=== PATIENT | female | born 1975 | race American Indian/Alaskan Native ===

== ENCOUNTER 2020-12-28 07:30 | Inpatient (IN) | payer BC ==
--- NOTE | 2021-01-17 10:24 | Anesthesia Consultation ---
Anesthesia Consult and Med Hx Date of service: 01/18/21 - Airway Anesthetic Teeth Evaluation: Good ROM Head & Neck: Adequate Mental/Hyoid Distance: Adequate Mallampati Class: Class II Intubation Access Assessment: Good - Pre-Operative Health Status ASA Pre-Surgery Classification: ASA2 Proposed Anesthetic Plan: General - Pulmonary Hx Smoking: No Hx Asthma: Yes (Allergic; INHALER PRN) Hx Sleep Apnea: No (LUIS PRE SCREEN LOW RISK) - Cardiovascular System Hx Hypertension: No - Central Nervous System Hx Back Pain: Yes (CHRONIC BACK PAIN WITH LEFT LEG PAIN) Hx Psychiatric Problems: No - Hematic Hx Anemia: No - Other Systems Hx Cancer: No - Additional Comments Anesthesia Medical History Comments: 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
[2021-01-17 10:28] LABS: Hematocrit 37.3 % (30.3-42.9); Hemoglobin 12.4 gm/dl (10.1-14.3); Mean Corpuscular HGB Conc 33 % (30-34); Mean Corpuscular Volume 86 fl (79-97); Platelet Count 159 K/mm3 (140-440); Red Blood Count 4.32 M/mm3 (3.65-5.03); Red Cell Distribution Width 13.9 % (13.2-15.2)
[2021-01-17 10:42] LABS: Blood Urea Nitrogen 12 mg/dL (7-17); Calcium 8.6 mg/dL (8.4-10.2); Hemolysis Index 21
[2021-01-17 10:44] LABS: BUN/Creatinine Ratio 20
[2021-01-18] MEDS ORDERED: ceFAZolin/Water 2 GM/20 ML 2 GM/20 ML SYRINGE IV NR (00:01)
[2021-01-18] MEDS ORDERED: MAGNESIUM OXIDE 400 MG TAB PO SCH (06:00)
[2021-01-18] MEDS ORDERED: LACTATED RINGERS 1,000 ML IV SCH (06:00)
[2021-01-18] MEDS ORDERED: GABAPENTIN 300 MG CAP PO NR (06:00)
[2021-01-18] MEDS ORDERED: ACETAMINOPHEN 500 MG TAB PO ONE (06:00)
[2021-01-18] MEDS ORDERED: MIDAZOLAM 2 MG/2 ML INJ IV NR (06:00)
[2021-01-18] MEDS ORDERED: propofoL 200 MG/20 ML VIAL IV ONE (07:22)
[2021-01-18] MEDS ORDERED: fentaNYL 100 MCG/2 ML INJ ONE (07:22)
[2021-01-18] MEDS ORDERED: HYDROmorphone 1 MG/1 ML INJ IV PRN (07:30)
[2021-01-18] MEDS ORDERED: ONDANSETRON 4 MG/2 ML INJ IV PRN ×2 (07:30→20:07)
[2021-01-18] MEDS ORDERED: LIDOCAINE PF 100 MG/5 ML (CARDIAC SYRINGE) IV ONE (07:38)
[2021-01-18] MEDS ORDERED: ONDANSETRON 4 MG/2 ML INJ ONE (07:38)
[2021-01-18] MEDS ORDERED: BUPIVACAINE/PF (0.5%) 5 MG/1 ML 30 ML VIAL INFILTRATI ONE ×2 (07:53→12:06)
[2021-01-18] MEDS ORDERED: BACITRACIN ZINC OINT 28.4 GM TP ONE ×2 (07:53→12:50)
[2021-01-18] MEDS ORDERED: GELATIN SPONGE SIZE 100 TP ONE ×3 (07:54→12:10)
[2021-01-18] MEDS ORDERED: LIDOCAINE 1%/EPINEPHRINE 1:100,000 VIAL (20 ML) INFILTRATI ONE ×2 (07:54→12:07)
[2021-01-18] MEDS ORDERED: SODIUM CHLORIDE 0.9% 250ML 250 ML ONE (07:54)
[2021-01-18] MEDS ORDERED: THROMBIN (RECOMBINANT) 5,000 UNIT VIAL TP ONE ×2 (07:54→12:10)
[2021-01-18] MEDS ORDERED: ROCURONIUM 50 MG/5 ML INJ IV ONE (08:54)
[2021-01-18] MEDS ORDERED: dexAMETHasone 20 MG/5 ML VIAL ONE (08:54)
[2021-01-18] MEDS ORDERED: BACITRACIN 50,000 UNIT VIAL ONE (09:26)
[2021-01-18] MEDS ORDERED: SODIUM CHLORIDE P/F VIAL 10 ML 10 ML ONE (09:28)
[2021-01-18] MEDS ORDERED: HYDROmorphone 1 MG/1 ML INJ ONE (10:45)
[2021-01-18] MEDS ORDERED: BACITRACIN 50,000 UNIT VIAL IR ONE (12:11)
[2021-01-18] MEDS ORDERED: VANCOMYCIN 1000 MG INJ ONE (12:27)
[2021-01-18] MEDS ORDERED: VANCOMYCIN 1,000 MG/20 ML IV ONE (12:39)
[2021-01-18] MEDS ORDERED: NEOSTIGMINE 10MG/10 ML INJ MDV ONE (12:58)
[2021-01-18] MEDS ORDERED: GLYCOPYRROLATE 0.4 MG/2 ML INJ ONE (12:58)
[2021-01-18] MEDS: HYDROmorphone 1 MG/1 ML INJ IV PRN ×2 (13:50→14:00)
[2021-01-18] MEDS ORDERED: oxyCODONE /ACETAMINOPHEN 5-325MG TAB PO PRN (14:04)
--- NOTE | 2021-01-18 14:04 | Post Operative Note ---
Pre-op diagnosis: Lumbar Radiculopathy Post-op diagnosis: same Findings: Left L5-S1 foraminal stenosis Procedure: Left L5-S1 MIS TLIF Anesthesia: GETA Surgeon: APRYL LOZA II Estimated blood loss: 50-100ml Pathology: none Condition: stable Disposition: PACU
--- NOTE | 2021-01-18 14:29 | XRay Report ---
Lumbar spine 3 fluoroscopic images INDICATION: Back pain FINDINGS: Total fluoroscopy time 5.7 minutes for L5-S1 interbody fusion. Hardware appears intact. IMPRESSION: Postoperative change at L5-S1. Signer Name: Gallito Parker MD Signed: 01/18/2021 2:25 PM Workstation Name: [id number]
[2021-01-18] MEDS ORDERED: SODIUM CHLORIDE 0.9% 1000 ML 1,000 ML IV SCH (14:30)
[2021-01-18] MEDS ORDERED: ceFAZolin/Water 2 GM/20 ML 2 GM/20 ML SYRINGE IV SCH (15:00)
[2021-01-18] MEDS ORDERED: traMADol 50 MG TAB PO PRN (16:00)
--- NOTE | 2021-01-18 17:20 | Anesthesia Day of Surgery ---
Anesthesia Day of Surgery - Day of Surgery Patient Examined: Yes Patient H&P Reviewed: Yes Patient is NPO: Yes
--- NOTE | 2021-01-18 17:21 | Post Anesthesia Evaluation ---
- Post Anesthesia Evaluation Patient Participated: Yes Airway Patent: Yes Stable Respiratory Function: Yes Nausea/Vomiting: No Temp > 96.8F: Yes Pain Manageable: Yes Adequeate Hydration: Yes Anesthesia Complications: No Block Receding Appropriately: Not Applicable Patient on Ventilator: No
[2021-01-18] MEDS: traMADol 50 MG TAB PO PRN (20:15)
[2021-01-18] MEDS: DOCUSATE SODIUM 100 MG CAP PO SCH (21:10)
[2021-01-18] MEDS: SENNOSIDES 8.6 MG TAB PO SCH (21:10)
[2021-01-19] MEDS: traMADol 50 MG TAB PO PRN (02:37)
[2021-01-19 08:47] VITALS: BP 108/75
[2021-01-19] MEDS: DOCUSATE SODIUM 100 MG CAP PO SCH (09:26)
[2021-01-19] MEDS: SENNOSIDES 8.6 MG TAB PO SCH (09:26)
--- NOTE | 2021-01-19 10:09 | Progress Note ---
Assessment and Plan 45 y/o F POD1 s/p L5-S1 MIS TLIF, doing well -OOB this morning with PT -brace at all times when OOB -regular diet -bowel regiment -hold pharmacologic dvt prophylaxis -pain control as needed -may discharge today if cleared by PT -please notify if questions Subjective Date of service: 01/19/21 Principal diagnosis: Chronic low back pain w/ radiculopathy Interval history: NAEON; pt reports resolution of her left leg pain and muscle spasms. She is very pleased with the results of the operation. Objective - Exam Narrative Exam: seen and examined no acute distress lying supine in bed alert and awake CNII-XII intact MAEW without focal weakness sensation intact to light touch incisions dressed, c/d/i drain patent - Vital Sign Vital Signs - 12hr 01/19/21 01/19/21 01/19/21 00:16 05:08 07:38 Temperature 98.6 F 98.3 F 98.6 F Pulse Rate 93 H 106 H 102 H Respiratory 16 16 18 Rate Blood Pressure 108/75 Blood Pressure 126/85 105/74 [Left] O2 Sat by Pulse 99 95 100 Oximetry - Laboratory Findings CBC and BMP: 01/17/21 10:00 01/17/21 10:00
--- NOTE | 2021-01-24 13:17 | Short Stay Summary ---
Short Stay Documentation Date of service: 01/18/21 Narrative H&P: Mrs. Nam presented to the clinic for elective L5-S1 MIS TLIF. The operation was performed without complication. She was transferred to the floor. Her pain was well controlled. She was evaluated by PT the following morning, and cleared for discharge. - History H&P: obtained from office Past Medical History: No medical history Past Surgical History: No surgical history Social history: no significant social history - Allergies and Medications Current Medications: Allergies iodine Allergy (Verified 01/16/21 13:04) Hives acetaminophen [From Percocet] Adverse Reaction (Verified 01/18/21 07:49) Rash oxycodone [From Percocet] Adverse Reaction (Verified 01/18/21 07:49) Rash shellfish derived Adverse Reaction (Verified 01/18/21 07:49) Hives Home Medications Medication Instructions Recorded Confirmed Last Taken Type Albuterol Sulfate [Proventil Hfa] 2 puff IH PRN PRN 01/16/21 01/18/21 01/18/21 05:00 History Allergy Shot 1 dose SUB-Q Q4W 01/16/21 01/18/21 12/28/20 09:00 History Cetirizine HCl [Zyrtec 10mg tab] 10 mg PO DAILY 01/16/21 01/18/21 01/17/21 09:00 History Docusate Sodium [Colace CAP] 100 mg PO BID 10 Days #20 capsule 01/19/21 Unknown Rx Gabapentin 300 mg PO DAILY 30 Days #30 cap 01/19/21 Unknown Rx Sennosides Tab [Senokot] 8.6 mg PO BID 10 Days #20 tablet 01/19/21 Unknown Rx methOCARBAMOL [Robaxin TAB] 750 mg PO Q8HR PRN 14 Days #40 01/19/21 Unknown Rx tablet traMADoL [Ultram 50 MG tab] 100 mg PO Q6H PRN 14 Days #40 01/19/21 Unknown Rx tablet - Disposition Condition at discharge: Fair Disposition: DC-01 TO HOME OR SELFCARE Short Stay Discharge Plan Follow up with: DR ANDERSON [Other] - 7 Days APRYL LOZA II, MD [Staff Physician] - 7 Days Prescriptions: Docusate Sodium [Colace CAP] 100 mg PO BID 10 Days #20 capsule Gabapentin 300 mg PO DAILY 30 Days #30 cap methOCARBAMOL [Robaxin TAB] 750 mg PO Q8HR PRN 14 Days #40 tablet PRN Reason: Muscle Spasm Sennosides Tab [Senokot] 8.6 mg PO BID 10 Days #20 tablet traMADoL [Ultram 50 MG tab] 100 mg PO Q6H PRN 14 Days #40 tablet PRN Reason: Pain , Severe (7-10)
--- NOTE | 2021-01-28 10:26 | Operative Report ---
DATE OF SURGERY: 01/18/2021 PREOPERATIVE DIAGNOSIS: Lumbosacral radiculopathy. POSTOPERATIVE DIAGNOSIS: Lumbosacral radiculopathy. PROCEDURE PERFORMED: 1. Placement of percutaneous nonsegmental pedicle fixation from L5-S1 (Globus). 2. Left L5-S1 laminectomy, facetectomy and foraminotomy to decompress the thecal sac, lateral recess as well as the exiting L5 and traversing S1 nerve roots. 3. Placement of intervertebral biomechanical device via Globus Rise cage into the L5-S1 disk space for arthrodesis 4. Use of intraoperative nerve monitoring. SURGEON: Mitul Randall II, MD SHIPPING TECHNICIAN: None. ANESTHESIA: General endotracheal anesthesia. BLOOD LOSS: Approximately 100 mL. FINDINGS: Severe foraminal stenosis on the left side at L5-S1 due to facet arthropathy and a disk bulge. COMPLICATIONS: None apparent. DISPOSITION: Stable, extubated to the recovery room. BRIEF HISTORY: Dany Cheng is a 45-year-old female with a history of chronic low back pain that presented to my clinic with complaints of progressive back and left leg pain. Symptoms had been persistent despite exhausting conservative therapy. Her imaging studies revealed disk height loss and foraminal stenosis at L5-S1. I offered her minimally invasive L5-S1 TLIF. I reviewed all pertinent risks and benefits of the operation including but not limited to pain, weakness, numbness, and spinal fluid leak. All pertinent risks and benefits were reviewed. Mrs. Nam agreed to proceed.l DESCRIPTION OF PROCEDURE: The patient was transferred to the operating theater by anesthesia. She was intubated without difficulty. She was positioned prone on an open Mateo table. Please note that all pressure points were padded to prevent peripheral nerve injury. The eyes were lubricated and taped shut to prevent corneal abrasion. The lumbar spine was prepped and draped in the usual sterile fashion. Next, with the use of AP and lateral fluoroscopy, bilateral percutaneous pedicle screws were placed at L5 and S1. There was good fixation achieved at each level. The screws were interrogated with the stimulator probe and the impedances were satisfactory. Next, on the left side, the percutaneous incisions were interconnected. Further dissection was performed with electrosurgical generator of Darrick Olson. The left L5 lamina and L5-S1 facet joints were exposed. Next, using a high speed matchstick drill, the left L5 lamina, pars and inferior facet joint were removed to gain access to the epidural space and lateral recess. The ligamentum flavum was removed with 2-0 and 3-0 Kerrison rongeurs. Next, the disk space was identified and all epidural veins were coagulated with the bipolar forceps of Jorge Galloway. The disc space was incised with a #15 blade. Sequential chris were placed into the disk space in preparation for cage placement. Disk material was removed with pituitary rongeurs and upgoing curettes. The endplates were prepared and stripped of their cartilaginous attachments with downgoing and ring curettes in addition to rasp. Ultimately, the Globus Rise 8 mm expandable cage was inserted into the L5-S1 interspace under lateral fluoroscopy and expanded until appropriate resistance was obtained. The exposure was copiously irrigated with bacitracin infused saline. Meticulous hemostasis was achieved with the bipolar forceps of Jorge Galloway and Surgiflo. Next, attention was turned to closure. A 10-Malawian drain was tunneled through the skin and placed overlying the decompression. Vancomycin powder was sprinkled throughout the exposure. The muscle and soft tissues were infiltrated with 0.5% Marcaine plain. The muscle and fascia were closed with 0 polyglactin synthetic absorbable suture. The dermis was closed with 2-0 polyglactin synthetic absorbable suture in an inverted fashion. The skin was reapproximated with shauna. There were no neuromonitoring changes throughout the duration of the operation. The patient was returned to anesthesia where she was extubated without delay. There were no immediate complications apparent. TID: [id number] RECEIPT: [id number] MARGARITO/KAYLA/[facility] HOSPITALStacey
--- NOTE | 2021-02-08 16:39 | Discharge Summary ---
Providers - Providers Date of Admission: 01/18/21 06:21 Date of discharge: 01/19/21 Attending physician: APRYL LOZA II, MD 01/18/21 17:29 Physical Therapy Evaluation and Treat [CONS] Routine Comment: Reason For Exam: s/p L5-S1 fusion 01/18/21 17:30 Occupational Therapy Evaluate and Treat [CONS] Routine Comment: Reason For Exam: s/p L5-S1 fusion Hospitalization Reason for admission: Surgery Condition: Fair Procedures: L5-S1 MIS TLIF Hospital course: The patient was admitted to [facility] for elective lumbar fusion. The operation was performed without complication. The patient was transferred to PACU, then to the floor. She was evaluated the following day by Physical therapy and cleared for discharge. Her pain was well controlled and she was able to ambulate without assistance. Disposition: TO HOME OR SELFCARE Final Discharge Diagnosis (Prints w/discharge instructions): Lumbar Radiculopathy Core Measure Documentation - Palliative Care Palliative Care/ Comfort Measures: Not Applicable - Core Measures Any of the following diagnoses?: none - VTE Discharge Requirements Deep Vein Thrombosis/Pulmonary Embolism Present on Admission: No Has pt received <5 days of overlap therapy or INR<2.0: No Anticoagulant overlap therapy prescribed at discharge: No Contraindication No Overlap Therapy order at DC: Not Indicated - Acute ND Discharge Requirements Aspirin at discharge: No Reason for no aspirin on DC: Surgical contraindication CHRISTIAN/ARB for LVSD if EF <40%: No Reason for no CHRISTIAN/ARB: Medical contraindication Beta americo at discharge: No Reason for no beta americo on DC: Medical contraindication Statin for LDL = or >100 mg/dl on DC: Not Applicable Reason for no statin on DC: Statin not tolerated - Heart Failure Discharge Requirements CHRISTIAN/ARB for LVSD if EF <40%: No Reason for no CHRISTIAN/ARB: Medical contraindication Beta americo at discharge: No Reason for no beta americo on DC: Medical contraindication - Stroke Discharge Requirements Statin for LDL = or >70 mg/dl on DC: No Reason for no statin on DC: Medical Contraindication Anticoag for atrial fib/atrial flutter: No Reason for no anticoag for AF/F on DC: Medical Contraindication Antithrombotic for ischemic stroke: No Reason for no antithrombotic on DC: Medical Contraindication Exam - Physical Exam Narrative exam: seen and examined no acute distress A&Ox3 CNII-XII intact motor strength full sensation intact reflexes +2 - Constitutional Vitals: Temp Pulse Resp BP Pulse Ox 98.6 F 102 H 18 108/75 100 01/19/21 07:38 01/19/21 07:38 01/19/21 07:38 01/19/21 07:38 01/19/21 07:38 Plan Activity: other (light, non-stressful activity ) Weight Bearing Status: Full Weight Bearing Diet: regular Wound: open to air Follow up with: DR ANDERSON [Other] - 7 Days LOZAAPRYL HOWELL II, MD [Staff Physician] - 7 Days Prescriptions: Docusate Sodium [Colace CAP] 100 mg PO BID 10 Days #20 capsule Gabapentin 300 mg PO DAILY 30 Days #30 cap methOCARBAMOL [Robaxin TAB] 750 mg PO Q8HR PRN 14 Days #40 tablet PRN Reason: Muscle Spasm Sennosides Tab [Senokot] 8.6 mg PO BID 10 Days #20 tablet traMADoL [Ultram 50 MG tab] 100 mg PO Q6H PRN 14 Days #40 tablet PRN Reason: Pain , Severe (7-10)
== END 2021-01-19 13:19 | disposition home or self-care (01) | DRG 460 ==
LOC: 3A 01-18 06:21 → EDSTATUS 01-18 07:30 → 3B-SURG 01-18 14:44
PROVIDERS: ADMIT Psychiatry & Neurology Neurology; ATTEND Psychiatry & Neurology Neurology
PROC: 0SG33AJ Fusion of Lumbosacral Joint with Interbody Fusion Device, Posterior Approach, Anterior Column, Percutaneous Approach (ICD-10-PCS; principal; 2021-01-18)
PROC: 01NR3ZZ Release Sacral Nerve, Percutaneous Approach (ICD-10-PCS; 2021-01-18)
PROC: 01NB3ZZ Release Lumbar Nerve, Percutaneous Approach (ICD-10-PCS; 2021-01-18)
PROC: 4A11X4G Monitoring of Peripheral Nervous Electrical Activity, Intraoperative, External Approach (ICD-10-PCS; 2021-01-18)
DX: M54.16 Radiculopathy, lumbar region (principal); J45.909 Unspecified asthma, uncomplicated; G89.29 Other chronic pain; L50.9 Urticaria, unspecified; M79.605 Pain in left leg; Z20.822 Contact with and (suspected) exposure to COVID-19
CPT/HCPCS: 36415; 72100; 80048; 85027; 86850; 86900; 86901; G0378; A4649; J0690; J1100; J1170; J2001; J2250; J2405; J2704; J2710; J3010; J3370; J7030; J7050; J7120; L8699; U0003

== ENCOUNTER 2021-01-23 17:48 | Emergency (ER) | payer BC | END 2021-01-23 20:32 | disposition left against medical advice (07) | LOC: ED 17:48 | DX: Z53.21 Procedure and treatment not carried out due to patient leaving prior to being seen by health care provider (principal) ==

== ENCOUNTER 2021-05-31 06:03 | Day surgery (SDC) | payer BC ==
[2021-05-30 10:15] LABS: Hematocrit 36.3 % (30.3-42.9); Hemoglobin 11.8 gm/dl (10.1-14.3); Mean Corpuscular HGB Conc 33 % (30-34); Mean Corpuscular Volume 82 fl (79-97); Platelet Count 167 K/mm3 (140-440); Red Blood Count 4.42 M/mm3 (3.65-5.03); Red Cell Distribution Width 15.3 % (13.2-15.2)
[2021-05-30 10:38] LABS: Alanine Aminotransferase 20 units/L (7-56); Albumin 4.3 g/dL (3.9-5); Blood Urea Nitrogen 15 mg/dL (7-17); Calcium 9.1 mg/dL (8.4-10.2); Hemolysis Index 2
[2021-05-30 10:54] LABS: BUN/Creatinine Ratio 25
--- NOTE | 2021-05-30 11:10 | Anesthesia Consultation ---
Anesthesia Consult and Med Hx Date of service: 05/31/21 - Airway Anesthetic Teeth Evaluation: Good ROM Head & Neck: Adequate Mental/Hyoid Distance: Adequate Mallampati Class: Class III Intubation Access Assessment: Possibly Difficult (previous easy intubation with MAC?4, anterior airway noted on anesthesia record) - Pulmonary Exam CTA: Yes - Cardiac Exam Cardiac Exam: RRR - Pre-Operative Health Status ASA Pre-Surgery Classification: ASA2 Proposed Anesthetic Plan: General - Pulmonary Hx Smoking: No Hx Asthma: Yes (rare inhaler use, associated with seasonal allergies) Hx Respiratory Symptoms: No Hx Sleep Apnea: No (LUIS PRE SCREEN LOW RISK) - Cardiovascular System Hx Hypertension: No - Central Nervous System CVA: No Hx Back Pain: Yes (chronic back and leg pain s/p TLIF 01/2021) - Endocrine Hx Renal Disease: No Hx Liver Disease: No Hx Insulin Dependent Diabetes: No Hx Non-Insulin Dependent Diabetes: No ("borderline" DM; diet controlled) Hx Thyroid Disease: No - Other Systems Hx Obesity: Yes (BMI 37) - Additional Comments Anesthesia Medical History Comments: No hx anesthetic complications. Hx cold- induced urticaria. Allergy to oxycodone noted in chart however patient states that she tolerates hydrocode without issues.
[~2021-05-31 06:03] MED LIST: ACETAMINOPHEN 500 MG TAB PO SCH; LACTATED RINGERS 1,000 ML IV SCH
[2021-05-31] MEDS ORDERED: BACTERIOSTATIC SODIUM CHLORIDE 0.9% 30 ML VIAL INFILTRATI ONE (06:07)
[2021-05-31] MEDS: MIDAZOLAM 2 MG/2 ML INJ IV NR ×2 (06:50→07:20)
[2021-05-31] MEDS ORDERED: ceFAZolin/STERILE WATER 2 GM/20 ML SYRINGE IV NR (07:10)
[2021-05-31] MEDS ORDERED: KETAMINE/STERILE WATER 50 MG/ML SYRINGE ONE (07:23)
[2021-05-31] MEDS ORDERED: ROCURONIUM 50 MG/5 ML INJ IV ONE (07:23)
[2021-05-31] MEDS ORDERED: LIDOCAINE MPF (2%) 20 MG/1 ML VIAL 5 ML ONE ×4 (07:23→09:05)
[2021-05-31] MEDS ORDERED: SODIUM CHLORIDE P/F VIAL 10 ML 10 ML ONE (07:24)
[2021-05-31] MEDS ORDERED: LIDOCAINE 1%/EPINEPHRINE 1:100,000 VIAL (20 ML) INFILTRATI ONE ×2 (07:30→10:06)
[2021-05-31] MEDS ORDERED: THROMBIN (RECOMBINANT) 5,000 UNIT VIAL TP ONE ×2 (07:30→10:05)
[2021-05-31] MEDS ORDERED: BUPIVACAINE/PF (0.5%) 5 MG/1 ML 30 ML VIAL INFILTRATI ONE ×2 (07:31→10:06)
[2021-05-31] MEDS ORDERED: VANCOMYCIN 1000 MG INJ ONE (07:31)
[2021-05-31] MEDS ORDERED: oxyCODONE /ACETAMINOPHEN 5-325MG TAB PO PRN (07:32)
[2021-05-31] MEDS ORDERED: ONDANSETRON 4 MG/2 ML INJ IV PRN (07:32)
--- NOTE | 2021-05-31 08:05 | History and Physical Report ---
History of Present Illness Date of examination: 05/31/21 Chief complaint: Back and left leg pain History of present illness: Betzaida Nam is a 46 y/o F that underwent Left L5-S1 MIS TLIF several months ago, She had an uneventful immediate post operative course. More than 3 mos following surgery, she developed recurrent back and left leg pain. CT L spine demonstrated slight posterior migration of the TLIF cage into the left L5- S1 foramen. She is here for surgical intervention to revise the graft. Medications and Allergies Allergies Allergy/AdvReac Type Severity Reaction Status Date / Time iodine Allergy Hives Verified 01/16/21 13:04 oxycodone [From Percocet] AdvReac Rash Verified 01/18/21 07:49 shellfish derived AdvReac Hives Verified 01/18/21 07:49 Home Medications Medication Instructions Recorded Confirmed Last Taken Type Albuterol Sulfate [Proventil Hfa] 2 puff IH PRN PRN 01/16/21 05/31/21 01/18/21 05:00 History Allergy Shot 1 dose SUB-Q Q4W 01/16/21 05/31/21 05/24/21 History Cetirizine HCl [Zyrtec 10mg tab] 10 mg PO DAILY 01/16/21 05/24/21 05/30/21 History Gabapentin 300 mg PO DAILY 30 Days #30 cap 01/19/21 05/24/21 05/30/21 Rx methOCARBAMOL [Robaxin TAB] 750 mg PO Q8HR PRN 14 Days #40 01/19/21 05/24/21 05/30/21 Rx tablet HYDROcodone/APAP 5-325 [[place] 1 each PO Q6HR PRN 05/30/21 05/30/21 05/30/21 History 5/325] Active Meds: Active Medications Acetaminophen (Acetaminophen 500 Mg Tab) 1,000 mg PO PREOP KATIANA Stop: 05/31/21 23:00 Last Admin: 05/31/21 06:40 Dose: 1,000 mg Documented by: Cefazolin Sodium (Cefazolin/Sterile Water 2 Gm/20 Ml Syringe) 2 gm IV PREOP NR Stop: 05/31/21 20:00 Hydromorphone HCl (Hydromorphone 1 Mg/1 Ml Inj) 0.5 mg IV Q10MIN PRN PRN Reason: Pain , Severe (7-10) Stop: 05/31/21 23:00 Lactated Ringer's (Lactated Ringers) 1,000 mls @ 100 mls/hr IV DIRECT KATIANA Stop: 05/31/21 23:59 Last Admin: 05/31/21 06:50 Dose: 100 mls/hr Documented by: Midazolam HCl (Midazolam 2 Mg/2 Ml Inj) 2 mg IV PREOP NR Stop: 05/31/21 23:00 Last Admin: 05/31/21 07:20 Dose: 2 mg Documented by: Ondansetron HCl (Ondansetron 4 Mg/2 Ml Inj) 4 mg IV ONCE PRN PRN Reason: Nausea And Vomiting Stop: 05/31/21 13:00 Review of Systems All systems: negative (what is specified in HPI) Physical Examination - Vital Signs Vital Signs: Vital Signs Temp Pulse Resp BP Pulse Ox 98 F 73 20 136/92 99 05/30/21 10:00 05/30/21 10:00 05/30/21 10:00 05/30/21 10:00 05/30/21 10:00 - Physical Exam Narrative exam: seen and examined NC/AT RRR breathing non-labored abdomen soft no cyanosis or clubbing A&Ox3 CNII-XII Intact MAEW with slight left EHL weakness sensation intact reflexes +2 incisions well healed Results - Laboratory Findings CBC and BMP: 05/30/21 10:05 05/30/21 10:05 Abnormal Lab Findings: Abnormal Labs 05/30/21 10:05 MCH 27 L RDW 15.3 H Assessment and Plan 46 y/o F w/ recurrent back and left leg pain following left L5-S1 MIS TLIF due to dorsal migration of the implant -to OR for exploration of fusion revision of left L5-S1 interbody graft
[2021-05-31] MEDS ORDERED: fentaNYL 100 MCG/2 ML INJ ONE (09:31)
[2021-05-31] MEDS ORDERED: SUGAMMADEX SODIUM 200 MG/2 ML VIAL IV ONE (09:35)
[2021-05-31] MEDS ORDERED: VANCOMYCIN 1,000 MG/20 ML IV ONE (10:07)
[2021-05-31] MEDS ORDERED: BACITRACIN ZINC OINT 28.4 GM TP ONE ×2 (11:00→11:02)
[2021-05-31] MEDS ORDERED: dexAMETHasone 20 MG/5 ML VIAL ONE (11:06)
[2021-05-31] MEDS ORDERED: ONDANSETRON 4 MG/2 ML INJ ONE (11:06)
--- NOTE | 2021-05-31 11:21 | Post Operative Note ---
Pre-op diagnosis: Left L5 radiculopathy Post-op diagnosis: same Findings: dorsal migration of left L5-S1 interbody graft Procedure: Revision of left L5-S1 interbody cage Anesthesia: GETA Surgeon: APRYL LOZA II Estimated blood loss: 50-100ml Pathology: none Condition: stable Disposition: PACU
[2021-05-31] MEDS: HYDROmorphone 1 MG/1 ML INJ IV PRN ×4 (11:30→11:50)
[2021-05-31] MEDS ORDERED: HYDROcodone/ACETAMINOPHEN 5-325 MG TAB PO PRN (12:21)
--- NOTE | 2021-05-31 12:44 | XRay Report ---
LUMBOSACRAL SPINE 2 VIEWS INDICATION: POST OP REV. TRANSFORAMINAL LUMBO-SACRAL INTERBODY FUSION.. COMPARISON: None. IMPRESSION: 0.8 minutes of fluoroscopy time was provided by radiology during lumbar surgery. 2 fluo roscopic images of the lower lumbar spine are presented demonstrating posterior fusion changes at L5- S1. Please correlate with the procedural report as needed. Signer Name: Be Bell Jr, MD Signed: 05/31/2021 12:39 PM Workstation Name: [id number]
[2021-05-31 18:46] VITALS: BP 121/78
--- NOTE | 2021-06-03 09:20 | Operative Report ---
DATE OF SURGERY: 05/31/2021 PREOPERATIVE DIAGNOSIS: Left L5 radiculopathy. POSTOPERATIVE DIAGNOSIS: Left L5 radiculopathy. PROCEDURE PERFORMED: Revision of left L5-S1 interbody graft. SURGEON: Mitul Randall M.D. II, MD. IT APPLICATION ARCHITECT: None. ANESTHESIA: General endotracheal anesthesia. FINDINGS: Dorsal migration of left L5-S1 interbody graft. COMPLICATIONS: None apparent. DISPOSITION: Stable, extubated to the recovery unit. BRIEF HISTORY: The patient is a 46-year-old Female that presented to the clinic 3 months following a left L5-S1 minimally invasive lumbar fusion. She did very well after surgery, but recently experienced worsening new onset left leg pain and low back pain. CT scan revealed dorsal migration of the L5-S1 interbody graft into the foramen with apparent compression/distortion of the exiting L5 nerve root. Based on these findings, I recommended revision of the implant to decompress the left L5 nerve root. I reviewed all pertinent risks, benefits, potential complications of the operation. She agreed to proceed. DETAILS OF THE OPERATION: The patient was taken to the operating theater by anesthesia. She was intubated without difficulty. She was positioned prone on an open Mateo table. Please note that all pressure points were padded to prevent peripheral nerve injury. Her eyes were lubricated and taped shut to prevent corneal abrasion. The previous left-sided skin incision was marked. The area was prepped and draped in the usual sterile fashion. The skin was opened infiltrated with 1% lidocaine with epinephrine. The skin was opened with a #10 scalpel blade. Further dissection was performed with the electrosurgical generator of Darrick Olson. The left L5-S1 posterior spinal hardware was exposed. The set screws and feng were removed. Next, meticulous dissection was performed to very carefully expose the left L5-S1 interbody graft. Once the graft was visualized, it was collapsed. Next, the interbody graft was tapped further into the disc space using a tamp and mallet. The location of the implant was confirmed on lateral fluoroscopy. Next, the feng was reinserted and secured with locking caps. The screws were compressed to give more stability to the implant in an attempt to prevent further dorsal migration. The locking caps were final tightened. The soft tissues were copiously irrigated. Vancomycin powder was sprinkled to coat the exposed soft tissues. A small drain was tunneled through the skin and secured. Finally, attention was directed to closure. The muscle and fascia were closed with 0 polyglactin synthetic absorbable suture. The dermis was closed with 2-0 polyglactin synthetic absorbable suture in an inverted fashion. The skin was reapproximated with a running nylon suture. Please note that all needle counts, sponge counts, and instrument counts were correct at the end of the case x 2. The patient appeared to tolerate the operation well. She was returned to anesthesia for extubation. She was transferred to the recovery unit in stable condition. There were no apparent complications. TID: [id number] RECEIPT: [id number] MARGARITO/DONAVON VILLALTA
== END 2021-05-31 06:04 | disposition home or self-care (01) ==
LOC: OR 06:03 → EDSTATUS 07:30
PROVIDERS: ATTEND Psychiatry & Neurology Neurology
DX: M54.16 Radiculopathy, lumbar region (principal); J45.909 Unspecified asthma, uncomplicated; E66.9 Obesity, unspecified; M19.90 Unspecified osteoarthritis, unspecified site; Z90.710 Acquired absence of both cervix and uterus; Z98.890 Other specified postprocedural states; Z20.822 Contact with and (suspected) exposure to COVID-19; Z91.041 Radiographic dye allergy status; Z91.013 Allergy to seafood
CPT/HCPCS: 22830; 36415; 72100; 80053; 85027; 86850; 86900; 86901; J0690; J1100; J1170; J2250; J2405; J2704; J3010; J3370; J3490; J7120; L8699; U0003